=== PATIENT | female | born 1945 | race Caucasian/White ===

== ENCOUNTER → 2022-07-05 08:49 | Outpatient (BNVA) | payer MEDICARE, SELFPAY | PROVIDERS: PCP Internal Medicine; Visit Provider Surgery Vascular Surgery | DX: I65.23 Occlusion and stenosis of bilateral carotid arteries (principal) | CPT/HCPCS: 99212 ==

== ENCOUNTER 2023-07-05 08:14 | Outpatient (REF) | payer MEDICARE, SELFPAY ==
--- NOTE | ~2023-07-05 | US_ITS ---
EXAMINATION: US EXTRACRANIAL CAROTID DUPLEX, BILATERAL CLINICAL INFORMATION: Bilateral carotid stenoses. COMPARISON: 02/12/2020. TECHNIQUE: Real-time ultrasound and Doppler techniques (integrating B-mode 2-D vascular images, Doppler spectral analysis and color-flow Doppler imaging) were utilized to interrogate the extracranial carotid arteries, the vertebral arteries and proximal subclavian arteries bilaterally. The degree of stenosis is determined by criteria similar to NASCET. FINDINGS: RIGHT SIDE: 1. There is mild atherosclerotic plaque seen in the bifurcation/proximal ICA region. 2. The common carotid artery PSV proximally is 113 cm/s and distally 87 cm/s. 3. The proximal internal carotid artery velocities are 94 cm/s systolic and 20 cm/s diastolic. 4. The proximal external carotid artery PSV is 106 cm/s. 5. The vertebral artery shows antegrade flow. 6. The subclavian artery waveforms are normal. LEFT SIDE: 1. There is mild atherosclerotic plaque seen in the bifurcation/proximal ICA region. 2. The common carotid artery PSV proximally is 125 cm/s and distally 84 cm/s. 3. The proximal internal carotid artery velocities are 49 cm/s systolic and 9 cm/s diastolic. 4. The proximal external carotid artery PSV is 85 cm/s. 5. The vertebral artery shows antegrade flow. 6. The subclavian artery waveforms are normal. US/US carotid duplex BI IMPRESSION: 1. RIGHT: Minimal, non-hemodynamically significant stenosis of the proximal right internal carotid artery corresponding to a 0-49% stenosis by velocity criteria. 2. LEFT: Minimal, non-hemodynamically significant stenosis of the proximal left internal carotid artery corresponding to a 0-49% stenosis by velocity criteria. 3. There is no change in the category severity of disease when compared to the previous study dated 02/12/2020.
== END 2023-07-05 08:15 | disposition home or self-care (01) ==
LOC: HO.HMGCX 08:14
PROVIDERS: PCP Internal Medicine; Visit Provider Surgery Vascular Surgery
DX: I65.23 Occlusion and stenosis of bilateral carotid arteries (principal)
CPT/HCPCS: 93880

== ENCOUNTER 2023-07-16 08:56 | Outpatient (AMB) | payer MEDICARE, SELFPAY ==
--- NOTE | 2023-07-16 08:57 | A.OFFVIS_ITS ---
Intake Vital Signs 07/16/23 09:00 Height 4 ft 11 in Weight 107 lb BMI 21.6 Intake Visit Reasons: fu carodid UD Intake Note: pt here for a fallow up Carotid US pt states that she is doing well and has no issues today Accompanied by: Daughter Allergies No Known Allergies Allergy (Verified 07/16/23 09:01) HPI fu carodid UD HPI Details Very pleasant 77-year-old female presents for routine carotid surveillance follow-up. She had originally seen me back in 2019 at [facility] for a right rostral pontine infarct. She had undergone a s ignificant workup inclusive of a CTA. She was lost to follow-up due to COVID. She has returned and has been following up with me here at [facility]. She has had no other interval issues in the meantime. She now presents for routine carotid ultrasound follow-up. [facility] Surgical History H/O: hysterectomy H/O rotator cuff surgery Social History Patient Tobacco Use Status: Never used Tobacco Review of Systems Const All systems reviewed & are unremarkable except as noted in HPI and below Reports no additional complaints ENT Reports Normal hearing present Card Denies chest pain, Denies chest pain at rest, Denies chest pain with activity and Denies pedal edema Resp Denies cough GI Denies abdominal pain Musc Denies abnormal gait, Denies muscle cramps and Denies radiating pain into limb Skin/Breast Denies skin ulcer and Denies wounds Neuro Reports Normal hearing present and Denies abnormal gait Psych Reports no additional complaints Physical Exam Vital Signs: BMI result Body Mass Index 21.6 Const General: cooperative, healthy appearing and comfortable Orientation/consciousness: oriented to person, oriented to place and oriented to time HEENT Head: Yes normal to inspection Neck Neck: Yes normal visual inspection Carotids: no bruits Chest Chest palpation & inspection: normal inspection of the chest Resp Effort & Inspection: normal respiratory effort and able to speak in complete sentences Auscultation: clear to auscultation bilaterally, no crackles, no rales, no rhonchi and no wheezes Cardio Rate: regular rate Rhythm: regular rhythm Heart sounds: S1 normal heart sound present and S2 normal heart sound present Bruits: no carotid bruits Peripheral pulses: Peripheral pulses 2+ throughout GI Inspection: Yes normal to inspection Skin Wounds: no wounds Hair: normal Neuro General: oriented to person, oriented to place and oriented to time Cranial nerves: Yes CN's II-XII intact bilaterally and Yes Normal hearing present Cognition (Neuro): normal cognition Motor exam (neuro): 5/5 motor strength present throughout Extrem Other: venous exam: No significant superficial varicosities or spider telangiectasias, minimal edema General: No clubbing, No cyanosis and No edema Psych Appearance: grossly normal Mental Status: mental status grossly normal Speech and movement: Normal speech and movement present Results Reviewed Results Reviewed: Carotid ultrasound dated 07/05/2023 demonstrates bilateral 0-49. % stenosis. Right side with a peak systolic velocity of 94 and left side peak systolic velocity of only 49. Written report and images were reviewed. Assessment & Plan Assessment & Plan (1) Bilateral carotid artery stenosis: Code(s): I65.23 - Occlusion and stenosis of bilateral carotid arteries Plan: In short patient has asymptomatic carotid disease. We have reviewed signs and symptoms of a stroke. We also discussed risk factor modification inclusive a healthy diet low in cholesterol. The patient will follow up with us with surveillance ultrasound of the carotids 1 year. Should there be any changes or signs or symptoms of a stroke we will be happy to see them back sooner. Thank you for allowing us to participate in this patient's care. If there are any questions or concerns please do not hesitate to contact us. Orders: Orders US carotid duplex BI 364 Days I65.23 - Occlusion and stenosis of bilateral carotid arteries Coding Level of Care Code Est Pt Level 4 (13417) Diagnoses Bilateral carotid artery stenosis I65.23
[2023-07-16 09:00] VITALS: BMI 21.6
== END 2023-07-16 09:23 | disposition home or self-care (01) ==
PROVIDERS: PCP Internal Medicine; Visit Provider Surgery Vascular Surgery
DX: I65.23 Occlusion and stenosis of bilateral carotid arteries (principal)
CPT/HCPCS: 99213

== ENCOUNTER → 2023-07-16 08:56 | Outpatient (BNVA) | payer MEDICARE, SELFPAY | PROVIDERS: PCP Internal Medicine; Visit Provider Surgery Vascular Surgery | DX: I65.23 Occlusion and stenosis of bilateral carotid arteries (principal) | CPT/HCPCS: 99212 ==

== ENCOUNTER 2024-08-06 09:55 | Outpatient (AMB) | payer MEDICARE, SELFPAY ==
--- NOTE | 2024-08-06 09:59 | MHC.OFFVIS ---
Vital Signs 08/06/24 10:10 BP 144/64 H Blood Pressure Location Rt brachial Position Sitting Intake Visit Reasons: 1 yr follow up s/p Carotid US- [facility] Intake Note: Pt c/o of intermittent LLE swelling. Career Placement Specialist Required: Yes Career Placement Specialist Services: Career Placement Specialist Offered & Declined Career Placement Specialist Name: Daughter will interpret Accompanied by: Daughter Allergies No Known Allergies Allergy (Verified 07/16/23 09:01) HPI HPI 1 yr follow up s/p Carotid US- [facility]: Details: Very pleasant 71-year-old female presents for routine surveillance follow-up regarding her carotids. She had elected to get her studies done that [facility]. I have only copies of a written report. Upon discussion with her she has no significant interim changes. She denies any neurological issues. She denies any weakness in arm or leg speech disturbances or visual field deficits. She also notes some swelling of the lower extremities. She does have some right knee and joint issues but now presents for routine follow-up. Of note she is being maintained on aspirin and statin. [facility] Surgical History H/O: hysterectomy H/O rotator cuff surgery Social History (Updated 08/06/24 @ 10:04 by Vielka Velez CMA) Alcohol intake: former Patient Tobacco Use Status: Never used Tobacco Review of Systems Const All systems reviewed & are unremarkable except as noted in HPI and below Denies chills, Denies fatigue, Denies fever(s), Denies weight gain and Denies weight loss ENT Reports Normal hearing present and Denies dizziness Card Denies chest pain, Denies leg edema, Denies lightheadedness, Denies palpitations, Denies dyspnea on exertion, Denies orthopnea and Denies other Resp Denies cough and Denies dyspnea on exertion GI Denies hematochezia and Denies change in stool character Musc Denies abnormal gait, Denies muscle weakness, Denies numbness, Denies radiating pain into limb and Denies tingling Skin/Breast Denies skin ulcer and Denies wounds Neuro Reports Normal hearing present, Denies abnormal gait, Denies dizziness, Denies numbness and Denies tingling Psych Reports no additional complaints Endo Denies fatigue and Denies palpitations Physical Exam Vital Signs: Last Vital Signs BP 144/64 H 08/06/24 10:10 Const General: cooperative, healthy appearing and comfortable Orientation/consciousness: oriented to person, oriented to place and oriented to time HEENT Head: Yes normal to inspection Neck Neck: Yes normal visual inspection Carotids: no bruits Chest Chest palpation & inspection: normal inspection of the chest Resp Effort & Inspection: normal respiratory effort and able to speak in complete sentences Auscultation: clear to auscultation bilaterally, no crackles, no rales, no rhonchi and no wheezes Cardio Other: Palpable dorsalis pulses bilaterally Rate: regular rate Rhythm: regular rhythm Heart sounds: S1 normal heart sound present and S2 normal heart sound present Bruits: no carotid bruits Peripheral pulses: Peripheral pulses 2+ throughout GI Inspection: Yes normal to inspection Skin Wounds: no wounds Hair: normal Neuro General: oriented to person, oriented to place and oriented to time Cranial nerves: Yes CN's II-XII intact bilaterally and Yes Normal hearing present Cognition (Neuro): normal cognition Motor exam (neuro): 5/5 motor strength present throughout Extrem Other: venous exam: +1 edema right greater than left General: No clubbing, No cyanosis and Yes edema Psych Appearance: grossly normal Mental Status: mental status grossly normal Speech and movement: Normal speech and movement present Results Reviewed Results Reviewed: Carotid testing dated 07/05/2023: 1. RIGHT: Minimal, non-hemodynamically significant stenosis of the proximal right internal carotid artery corresponding to a 0-49% stenosis by velocity criteria. 2. LEFT: Minimal, non-hemodynamically significant stenosis of the proximal left internal carotid artery corresponding to a 0-49% stenosis by velocity criteria. 3. There is no change in the category severity of disease when compared to the previous study dated 02/12/2020. Written report from carotid testing dated 1226 2023 from [facility]: Right-sided 0-49% stenosis left side 50-69% stenosis with a peak systolic of 149 and a ratio of 1.5. Although I do not have exact images the left side is towards the lower end of that range as the peak systolic is quite low and the ratio is low as well. Assessment & Plan Assessment & Plan (1) Bilateral carotid artery stenosis: Code(s): I65.23 - Occlusion and stenosis of bilateral carotid arteries Category: Medical Plan: In short patient has asymptomatic carotid disease. At the current time her carotid testing is within normal limits. I did spend a fair amount of time reviewing the testing and reassuring the patient is that the studies are stable. There is no need for intervention at the current time. We have reviewed signs and symptoms of a stroke. We also discussed risk factor modification inclusive a healthy diet low in cholesterol. The patient will follow up with us with surveillance ultrasound of the carotids 1 year. Should there be any changes or signs or symptoms of a stroke we will be happy to see them back sooner. Thank you for allowing us to participate in this patient's care. If there are any questions or concerns please do not hesitate to contact us. (2) Varicose veins of right lower extremity with inflammation: Code(s): I83.11 - Varicose veins of right lower extremity with inflammation Category: Medical Plan: She does have lower extremity swelling. This may be multifactorial in nature. May be related to her knees and overall inflammation. We did have a discussion about venous insufficiency. I have discussed the pathophysiology with the patient and family at bedside. In addition I have provided informational material regarding venous disease to the patient. We have discussed conservative measures including compression, elevation, and exercise. I have also provided a handout regarding appropriate use of compression stockings and where to purchase good compression stockings as well. I have taken the liberty of ordering venous insufficiency testing with the patient. They will follow up with me after testing. The patient had an opportunity to ask questions regarding the treatment plan. All questions were answered. Imaging studies, laboratory studies and physical exam results were discussed and reviewed in detail. No major barriers to understanding were identified. The patient expressed understanding and agreement with the above treatment plan. The patient is aware they should contact our office by phone for worsening of the current condition or the appearance of new symptoms. Thank you for allowing me to participate in the vascular care of this patient. If you have any questions or concerns regarding the treatment for the above condition please do not hesitate to contact me. The office telephone contact is [phone]. This note is constructed using voice recognition software. While every effort has been made to ensure accuracy, light industrial errors may have been included. Thank you for allowing me to participate in the care of your patient. Yours sincerely, Uche eHrnandez MD, FACS, R.P.V.I. Orders: Orders US venous duplex LE BI 1 Week I83.11 - Varicose veins of right lower extremity with inflammation US carotid duplex BI 1 Year I65.23 - Occlusion and stenosis of bilateral carotid arteries Coding Level of Care Code Est Pt Level 4 (05236) Complex EM visit Add On G2211 Diagnoses Bilateral carotid artery stenosis I65.23 Varicose veins of right lower extremity with inflammation I83.11
[2024-08-06 10:10] VITALS: BP 144/64
== END 2024-08-06 10:37 | disposition home or self-care (01) ==
PROVIDERS: PCP Internal Medicine; Visit Provider Surgery Vascular Surgery
DX: I65.23 Occlusion and stenosis of bilateral carotid arteries (principal); I83.11 Varicose veins of right lower extremity with inflammation
CPT/HCPCS: 99214; G2211

== ENCOUNTER → 2024-08-06 09:55 | Outpatient (BNVA) | payer MEDICARE, SELFPAY | PROVIDERS: PCP Internal Medicine; Visit Provider Surgery Vascular Surgery | DX: I65.23 Occlusion and stenosis of bilateral carotid arteries (principal); I83.11 Varicose veins of right lower extremity with inflammation | CPT/HCPCS: 99212 ==

== ENCOUNTER 2024-08-26 12:36 | Outpatient (REF) | payer MEDICARE, SELFPAY ==
--- NOTE | ~2024-08-26 | US_ITS ---
EXAMINATION: US LOWER EXTREMITY VENOUS (REFLUX EXAM), BILATERAL CLINICAL INFORMATION: Varices with inflammation, right lower extremity COMPARISON: None. TECHNIQUE: Color flow triplex imaging and compression Doppler was performed to evaluate both the deep and the superficial systems bilaterally. To evaluate the superficial system, the examination was performed in the upright position. Color-flow Doppler ultrasound and compression ultrasound were utilized. In addition, maneuvers were utilized to demonstrate reflux. FINDINGS: 1. DEEP VENOUS ULTRASOUND OF THE RIGHT LOWER EXTREMITY: Common Femoral Vein: Compressible, normal respiratory variation and augmented flow. Femoral Vein: Compressible, normal color flow and augmentation. Popliteal Vein: Compressible, normal augmentation. Deep Reflux: There is no evidence of reflux in the deep system in either the common femoral vein, superficial femoral or the popliteal vein. There is no evidence of a Casas's cyst. 2. SUPERFICIAL ULTRASOUND WITH DOPPLER OF RIGHT LOWER EXTREMITY: GREAT SAPHENOUS VEIN: Saphenofemoral Junction: 0.4 cm; Reflux: 0 ms Proximal Thigh: 0.2 cm; Reflux: 0 ms Mid Thigh: 0.2 cm; Reflux: 0 ms Distal Thigh: 0.2 cm; Reflux: 0 ms At Knee: 0.2 cm; Reflux: 0 ms Proximal Calf: 0.4 cm; Reflux: 0 ms Mid Calf: 0.2 cm; Reflux: 0 ms Distal Calf: 0.2 cm; Reflux: 0 ms DUPLICATED MEDIAL GREAT SAPHENOUS VEIN: Diameter: None imaged Reflux: NA DUPLICATED LATERAL GREAT SAPHENOUS VEIN: Diameter: 0.2 Reflux: NA SMALL SAPHENOUS VEIN: Saphenopopliteal Junction: 0.1 cm; Reflux: 0 ms Proximal: 0.1 cm; Reflux: 0 ms Distal: 0.2 cm; Reflux: 0 ms VEIN OF GIACOMINI: Size: 0.1 Reflux: NA PERFORATORS: Location: None imaged Size: NA Reflux: NA VARICOSITIES: Location: None imaged. Size: NA Reflux: NA 3. DEEP VENOUS ULTRASOUND OF THE LEFT LOWER EXTREMITY: Common Femoral Vein: Compressible, normal respiratory variation and augmented flow. Femoral Vein: Compressible, normal color flow and augmentation. Popliteal Vein: Compressible, normal augmentation. Deep Reflux: There is no evidence of reflux in the deep system in either the common femoral vein, superficial femoral or the popliteal vein. There is no evidence of a Casas's cyst. 4. SUPERFICIAL ULTRASOUND WITH DOPPLER OF LEFT LOWER EXTREMITY: GREAT SAPHENOUS VEIN: Saphenofemoral Junction: 0.4 cm; Reflux: 0 ms Proximal Thigh: 0.2 cm; Reflux: 0 ms Mid Thigh: 0.2 cm; Reflux: 0 ms Distal Thigh: 0.2 cm; Reflux: 0 ms At Knee: 0.2 cm; Reflux: 0 ms Proximal Calf: 0.3 cm; Reflux: 0 ms Mid Calf: 0.1 cm; Reflux: 0 ms Distal Calf: 0.2 cm; Reflux: 0 ms DUPLICATED MEDIAL GREAT SAPHENOUS VEIN: Diameter: None imaged Reflux: NA DUPLICATED LATERAL GREAT SAPHENOUS VEIN: Diameter: None imaged. Reflux: NA SMALL SAPHENOUS VEIN: Saphenopopliteal Junction: 0.2 cm; Reflux: 0 ms Proximal: 0.2 cm; Reflux: 0 ms Distal: 0.1 cm; Reflux: 0 ms VEIN OF GIACOMINI: Size: 0.2 Reflux: NA PERFORATORS: Location: None imaged Size: NA Reflux: NA VARICOSITIES: Location: None Imaged Size: NA Reflux: NA US/US venous insuf bilat IMPRESSION: Right: No venous insufficiency. Left: No venous insufficiency. Electronically signed by: Jarett Jordan MD 08/31/2024 08:15 AM [facility]
== END 2024-08-26 12:37 | disposition home or self-care (01) ==
LOC: HO.US 12:36
PROVIDERS: PCP Internal Medicine; Visit Provider Surgery Vascular Surgery
DX: I83.11 Varicose veins of right lower extremity with inflammation (principal)
CPT/HCPCS: 93970

== ENCOUNTER → 2024-08-26 12:39 | Outpatient (BNV) | payer MEDICARE, SELFPAY | PROVIDERS: PCP Internal Medicine; Visit Provider Radiology Diagnostic Radiology | DX: I83.11 Varicose veins of right lower extremity with inflammation (principal) | CPT/HCPCS: 93970 ==

== ENCOUNTER 2024-09-03 11:26 | Outpatient (AMB) | payer MEDICARE, SELFPAY ==
--- NOTE | 2024-09-03 11:31 | A.OFFVIS_ITS ---
Intake Visit Reasons: follow up s/p US 08/26/24 Intake Note: Patient presents for US . No complaints. Accompanied by: Daughter Allergies No Known Allergies Allergy (Verified 09/03/24 11:32) HPI HPI follow up s/p US 08/26/24: Details: Ninfa is presenting today with her daughter for a follow up to venous insufficiency ultrasound, performed on 08/26/2024. She recently was here for a follow up to carotid ultrasound on 08/06/20[address] and was discussing with Dr[address] Hernandez about bilateral lower extremity swelling and pain, worse on the right. He then ordered a venous insufficiency ultrasound. She continues with swelling and pain, mostly located in the right knee area. She has been seen and has had an cortisone injection in the past, which helped for about a week or so. She is also set to have a stress test next week to rule out causes of the swelling. She denies any injuries or wounds to the site. [facility] Surgical History H/O: hysterectomy H/O rotator cuff surgery Social History Alcohol intake: former Patient Tobacco Use Status: Never used Tobacco Review of Systems Const Reports as per HPI and Denies weakness ENT Reports Normal hearing present and Denies dizziness Card Reports as per HPI, Denies chest pain, Denies chest pain at rest, Denies chest pain with activity, Denies dyspnea and Denies dyspnea on exertion Resp Reports as per HPI, Denies cough, Denies dyspnea and Denies dyspnea on exertion GI Reports as per HPI, Denies abdominal pain, Denies nausea and Denies vomiting Musc Denies numbness Skin/Breast Reports as per HPI, Denies erythema and Denies wounds Neuro Reports Normal hearing present, Denies dizziness, Denies numbness, Denies Sensory deficit (Neuro) and Denies weakness Psych Reports no additional complaints Endo Reports no additional complaints Physical Exam Const General: healthy appearing and no acute distress Orientation/consciousness: patient oriented x3 HEENT Head: Yes normal to inspection Ears: hearing grossly normal bilaterally Mouth: Normal oral and palatal mucosa present Resp Effort & Inspection: normal respiratory effort and able to speak in complete sentences Auscultation: clear to auscultation bilaterally Cardio Jugular venous distension: no JVD Rate: regular rate Rhythm: regular rhythm Heart sounds: S1 normal heart sound present and S2 normal heart sound present Bruits: no abdominal aortic bruits, no carotid bruits, no femoral bruits and no renal bruits Peripheral pulses: Peripheral pulses 2+ throughout GI Inspection: Yes normal to inspection Palpation (GI): No Abdominal aortic bruit present Skin General skin exam: no rashes or lesions noted Wounds: no wounds Hair: normal Neuro General: patient oriented x3 Cranial nerves: Yes Normal hearing present Cognition (Neuro): normal cognition Gait exam (Neuro): Normal gait present Motor exam (neuro): 5/5 motor strength present throughout Sensory Exam: No Sensory deficit (Neuro) Extrem Other: Right lower extremity: Swelling noted on the medial aspect of the knee. Trace peripheral edema noted in the ankle area. Palpable DP pulses. General: Yes normal to inspection, Yes full ROM, Yes capillary refill normal and Yes normal gait Results Reviewed Results Reviewed: Brief summary of venous insufficiency testing is as follows: right great saphenous vein: negative right small saphenous vein: negative right accessory vein: none present left great saphenous vein: negative left small saphenous vein: negative left accessory vein: none present Please note there is no evidence of any venous aneurysms or significant tortuosity Assessment & Plan Assessment & Plan (1) Varicose veins of right lower extremity with inflammation: Code(s): I83.11 - Varicose veins of right lower extremity with inflammation Category: Medical Plan: Ninfa is presenting today as a follow up to venous insufficiency ultrasound, performed on 08/26/2024. The ultrasound was negative for any venous insufficiency. She does continue to endorse right more than left lower extremity swelling and pain, particularly around the right knee. She has been seen and had a cortisone injection in the right knee previously, which she states helped for only about a week. She is going to have a cardiac stress test next week to rule out any cardiac causes of swelling. We discussed following back up with her PCP for possible referral to ortho due to ongoing right knee pain and swelling. We discussed the importance of continuing with compression stockings, elevation, and physical activity. The daughter states the patient is very active but the knee pain has been difficult for her to stay active. We discussed if they had any other vascular concerns or any changes, they can reach out to us any point. We did print out a copy of the report of the ultrasound for the patient to bring to her PCP. She has a year follow up for her carotid stenosis scheduled. Thank you for allowing us to participate in the patient's care. If there are any questions or concerns, please do not hesitate to reach out to us. Coding Level of Care Code Est Pt Level 4 (01708) Diagnoses Varicose veins of right lower extremity with inflammation I83.11 Comment Review of venous insufficiency ultrasound
--- OUTSIDE RECORDS SUMMARY | 2024-09-03 15:24 | XMS_ITS | Clinical Summary ---
Author Organization [facility] Address [address] [place] [phone] Phone Care Team Providers Care Hog Worker Name Role Phone Addie Deleon MD Primary Care Provider [phone] Allergies No known active allergies Medications Medication Sig Dispensed Refills Start Date End Date Status aspirin 81 mg EC tablet Take 1 Tablet by mouth daily. 04/07/2024 Active ciclopirox (LOPROX) 0.77 % gel Apply topically daily 05/14/2023 Active fluticasone propionate (FLONASE) 50 mcg/actuation nasal spray Two sprays per nostril once daily 11/22/2022 Active folic acid/multivit-min/l utein (CENTRUM SILVER ORAL) Take by mouth. 10/01/2018 Active GARLIC ORAL Take by mouth. Active CALCIUM CITRATE ORAL Take by mouth. Active omeprazole (PriLOSEC) [address] capsule Take 1 capsule (10 mg total) by mouth 1 (one) time each day before breakfast. 90 capsule 07/13/2024 Active atorvastatin (LIPITOR) 10 mg tablet Take 1 tablet (10 mg total) by mouth at bedtime. 90 tablet 07/13/2024 Active Active Problems Problem Noted Date Diagnosed Date Onychomycosis 04/26/2022 Hyperlipidemia 10/12/2020 Carotid stenosis 06/29/2019 Overview (05/18/2024): 60%06/23 Hemiparesis affecting right side as late effect of stroke 06/19/2019 Overview (05/18/2024): Right sided, left sided weakness 06/23 Allergic rhinitis 06/08/2019 Insomnia 11/17/2018 Osteoarthritis 10/01/2018 Tubular adenoma 04/07/2015 Overview (05/18/2024): Dr Hernandez general medicine note 12/22/2013 GERD (gastroesophageal reflux disease) 5 Osteopenia 12/13/2014 Overview (05/18/2024): 2018 T score spine -1.7 hip -2.1 FRAX score 13% 10 year fracture risk 12/23 T score spine -2.3 hip -2.0 FRAX score 11% 10 year fracture risk 06/27 T score spine -2.3 hip -2.4 FRAX score 16% 10 year fracture risk Encounters Date Type Department Care Team Description 08/07/2024 8:30 AM EST Office Visit Orthopedics - [address] [phone] Adam Henson PA Primary osteoarthritis of right knee (Primary Dx) 08/04/2024 2:30 PM EST Office Visit Adult Medicine [address] [phone] Maricruz Haskins PA Chronic pain of both knees (Primary Dx); Chest pain, unspecified type; Bilateral carotid artery stenosis 07/31/2024 9:07 AM EST - 07/31/2024 11:59 PM EST Hospital Encounter Radiology Department - [address] [phone] Occlusion and stenosis of bilateral carotid arteries Discharge Disposition: Home or Self Care 06/09/2024 Nurse Triage Adult Medicine [address] [phone] Addie Deleon MD Covid-19 (Positive by home test on 06/09/24); Generalized Body Aches; Fever (100.5-100.7 as of today); Altered Taste; Sore Throat; Dry Mouth; Headache; heaviness (In legs and arms) from Last 3 Months Immunizations Name Administration Dates Next Due Influenza trivalent, 0.5mL ( Fluad) 65yo and older 05/02/2023,04/26/2022,04/26/2021,05/11,05/15/2019,05/13/2018,06/01/2017 ,05/01/2016,05/20/2015,05/05/2014 Moderna (age 6mo & older) Bi valent, COVID-19, 0.5 mL or 0.25 mL dosage 05/18/2022 Pneumococcal conjugate 13 va lent (Prevnar 13, PCV13) 2mo and older 05/01/2016 Pneumococcal polysaccharide 23 valent (Pneumovax 23) 2yo and older 06/01/2017,04/05/2011 Td Tetanus diptheria (Tdvax) 7yo and older 06/08/2019,11/10/2007 Zoster recombinant (Shingrix ) 19yo and older 05/20/2021,03/15/2021 Surgical History Surgery Date Site/Laterality Comments HYSTERECTOMY PROCEDURE: HISTORICAL HYSTERECTOMY COLONOSCOPY 10/05/2008 PROCEDURE: HISTORICAL COLONOSCOPY ROTATOR CUFF REPAIR 2006 Right PROCEDURE: HISTORICAL ROTATOR CUFF REPAIR OTHER SURGICAL HISTORY 05/2021 PROCEDURE: MAMMOGRAM COLONOSCOPY 03/2021 PROCEDURE: HISTORICAL COLONOSCOPY Medical History Medical History Date Comments Osteopenia 12/13/2014 DX:Osteopenia Osteoarthritis 10/01/2018 DX:Osteoarthriti s GERD (gastroesophageal reflux disease) 12/13/2014 DX:GERD (gastroesophageal reflux disease) Insomnia 11/17/2018 DX:Insomnia Tubular adenoma 04/07/2015 DX:Tubular adeno ma; COMMENT: Dr Hernandez general medicine note 12/22/2013 Ischemic stroke (CMS/HCC) 06/19/2019 DX:Isc hemic stroke (HCC); COMMENT: Right sided, left sided weakness 06/23 Carotid stenosis 06/29/2019 DX:Carotid sten osis; COMMENT: 60%06/23 Hyperlipidemia 10/12/2020 DX:Hyperlipidemi a Onychomycosis 04/26/2022 DX:Onychomycosis Family History Medical History Relation Name Comments Other: cancer prostate Father strok e Stroke Maternal Grandmother Stroke Mother Other: cancer of cervix Sister 1 Other: alcoholism Sister 2 Breast cancer Neg Hx Relation Name Status Comments Father Maternal Grandmother Mother Sister 1 Sister 2 Social History Tobacco Use Types Packs/Day Years Used Date Smoking Tobacco: Never Smokeless Tobacco: Never Tobacco Cessation:Counseling Given: Not Answered Alcohol Use Standard Drinks/Week Comments Yes 0 (1 standard drink = 0.6 oz pur e alcohol) Sex and Gender Information Value Date Recorded Sex Assigned at Not on file Gender Identity Not on file Sexual Orientation Not on file Job Start Date Occupation Industry Not on file Not on file Not on file Obstetrics History Last Filed Vital Signs Vital Sign Reading Time Taken Comments Blood Pressure 138/68 08/04/2024 2:20 PM EST Pulse 74 08/04/2024 2:20 PM EST Temperature 36.8 ??C (98.3 ??F) 08/04/2024 2:20 PM ES T Respiratory Rate 12 08/04/2024 2:20 PM EST Oxygen Saturation 97% 08/04/2024 2:20 PM EST Inhaled Oxygen Concentration - - Weight 49.4 kg (109 lb) 08/07/2024 8:28 AM EST Height 149.9 cm (4' 11.02 ) 08/07/2024 8:[address] Body Mass Index 22 08/07/2024 8:28 AM EST Plan of Treatment Upcoming Encounters Date Type Department Care Team (Late st Contact Info) Description 09/10/2024 9:15 AM EST Ancillary Procedure [facility] [address] [phone] 09/23/2024 4:00 PM EST Office Visit Orthopedics [address] [phone] Adam Henson PA [address] [place] [address] 11/09/2024 8:30 AM EDT Office Visit Adult Medicine [place] [address] [phone] Addie Deleon MD [address] [place] [address] 12/02/2024 4:00 PM EDT Appointment Radiology Department - [place] [address] [place] [address] Health Maintenance Due Date Last Done Comments RSV Immunization Patients 60+ Years Old (1 - 1-dose 75+ series) 2021 Depression Screening 07/14/2022 Falls Risk Assessment 07/14/2022 Medicare Annual Wellness Visit 07/14/2022 Social Influencers of Health Screening 07/14/2022 COVID-19 Vaccine ( season) 2024 05/18/2022, 06/08/2021, 10/26/2020, Additional history exists Colorectal Cancer Screening: Colonoscopy 03/06/2026 03/06/2021 Cholesterol Screening (Lipid Panel) 05/11/2029 05/11/2024, 05/11/2024 DTaP,Tdap,and Td Vaccines (3 - Td or Tdap) 06/08/2029 06/08/2019, 11/10/2007 Osteoporosis Screening (Bone Density Screening) 07/04/2033 07/04/2023, 12/28/2020, 11/06/2018 Hepatitis C Screening Completed 12/30/2014 Pneumococcal Vaccine: 65+ Years Completed 06/01/2017, 05/01/2016, 04/05/2011 Zoster Vaccines Completed 05/20/2021, 03/15/2021 Influenza Vaccine Completed 06/01/2024, , 04/26/2022, Additional history exists HIB Vaccines Aged Out No longer eligi ble based on patient's age to complete this topic HPV Vaccines Aged Out No longer eligi ble based on patient's age to complete this topic Hepatitis A Vaccines Aged Out No long er eligible based on patient's age to complete this topic Hepatitis B Vaccines Aged Out No long er eligible based on patient's age to complete this topic IPV Vaccines Aged Out No longer eligi ble based on patient's age to complete this topic MMR Vaccines Aged Out No longer eligi ble based on patient's age to complete this topic Meningococcal ACWY Vaccine Aged Out N o longer eligible based on patient's age to complete this topic RSV Immunization Patients Under 20 months Aged Out No longer eligible based on patient's age to complete this topic Varicella Vaccines Aged Out No longer eligible based on patient's age to complete this topic Procedures Procedure Name Priority Date/Time Associated Diagnosis Comments VAS US DUPLEX CAROTID BILATERAL Routine 07/31/2024 10:02 AM EST Occlusion and stenosis of bilateral carotid arteries LIPID PANEL Routine 05/11/2024 DXA BONE DENSITY STUDY 1+ SITS AXIAL SKEL Routine 07/04/2023 3:17 PM EST Other specified disorders of bone density and structure, unspecified site HM COLONOSCOPY Routine 03/06/2021 HEPATITIS C SCREENING Routine 12/30/2014 from Last 3 Months or Most Recently Relevant to Health Maintenance Results * Vascular US duplex carotid bilateral (07/31/2024 10:02 AM EST) Anatomical Region Laterality Modality Vascular, Abdomen Ultrasound 07/31/2024 10:0 5 AM EST Impressions 07/31/2024 10:11 AM EST Impression: Technically difficult examination. ??Findings consistent with a 0- 49% right internal carotid artery stenosis and a 50-69% left internal carotid artery stenosis. -------- FINAL REPORT -------- Dictated By: Brandon Lopez Dictated Date: 07/31/2024 10:05 ET Assigned Physician: Brandon Lopez Reviewed and Electronically Signed By: Brandon Lopez Signed Date: 07/31/2024 10:11 ET Workstation ID: [id number] Transcribed By: Self Edit Transcribed Date: 07/31/2024 10:05 ET Narrative 07/31/2024 10:11 AM EST History: Carotid artery stenosis. Carotid Doppler examination: Real-time, duplex and color Doppler examination of the carotid and vertebral arteries was performed bilaterally. ??Evaluation was difficult due to bilateral high carotid arterial bifurcations. ??There are small echogenic plaques at the internal carotid artery and ECA origins as well as in the distal CCAs bilaterally. Waveforms, velocities and velocity ratios are normal on the right. ??On the right the peak systolic velocity is 123 cm/s and the peak internal carotid artery to CCA ratio 0.8. ??On the left the peak internal carotid artery velocity is 149 cm/s and the peak internal carotid artery to CCA ratio is 1.5. ??The peak systolic velocity on the left is compatible with a 50-69% stenosis, with the caveat that the evaluation was technically difficult. ??Vertebral flow is antegrade bilaterally, with normal waveforms. Procedure Note Brandon Lopez MD - 07/31/2024 History: Carotid artery stenosis. Carotid Doppler examination: Real-time, duplex and color Dopplerexamination of the carotid and vertebral arteries was performedbilaterally. Evaluation was difficult due to bilateral high carotidarterial bifurcations. There are small echogenic plaques at the internalcarotid artery and ECA origins as well as in the distal CCAs bilaterally.Waveforms, velocities and velocity ratios are normal on the right. On theright the peak systolic velocity is 123 cm/s and the peak internal carotidartery to CCA ratio 0.8. On the left the peak internal carotid arteryvelocity is 149 cm/s and the peak internal carotid artery to CCA ratio is1.5. The peak systolic velocity on the left is compatible with a 50-69%stenosis, with the caveat that the evaluation was technically difficult.Vertebral flow is antegrade bilaterally, with normal waveforms. IMPRESSION: Impression: Technically difficult examination. Findings consistent with a0-49% right internal carotid artery stenosis and a 50-69% left internalcarotid artery stenosis. -------- FINAL REPORT -------- Dictated By: Brandon Lopez Dictated Date: 07/31/2024 10:05 ET Assigned Physician: Brandon Lopez Reviewed and Electronically Signed By: Brandon Lopez Signed Date: 07/31/2024 10:11 ET Workstation ID: [id number] Transcribed By: Self Edit Transcribed Date: 07/31/2024 10:05 ET Maricruz DURAN CV VASCULAR PROCEDUR ES * Lipid panel (05/11/2024) LDL/HDL Ratio 2 0 - 4 Triglycerides 72 0 - 150 mg/dL Cholesterol 121 0 - 200 mg/dL HDL 56 40 mg/dL LDL Cholesterol 51 0 - 100 mg/dL Blood Venous blood specimen / Unknown Historical Provider LAB BLOOD ORDERAB LES * DXA BONE DENSITY STUDY 1+ SITS AXIAL SKEL (07/04/2023 3:17 PM EST) Anatomical Region Laterality Modality Bone Densitometr y 05/02/2023 9:02 AM EDT Narrative 07/04/2023 6:24 PM EST BONE DENSITY ? Lumbar Spine T-score is -2.3 ?? (SD relative to 20-29 y/o adult) Z-score is +0.2 ??(SD relative to age matched peers) This is consistent with osteopenia by criteria defined by the WHO. Left Hip T-score is -2.4 Z-score is -0.2 This is consistent with osteopenia by criteria defined by the WHO. Comparison exam(s): significant increase in bone density of ??hip when compared to most recent bone density examination ?? Confidence level is +/-95%. Impression: Based on the World Health Organization criteria, Ninfa Roblero should be classified as having osteopenia. This patient has a 16% risk of major osteoporotic fracture and a 5.1% risk of hip fracture over the next 10 years. (World Health Organization Fracture Risk Assessment) [facility] Department of Internal Medicine recommends using National Osteoporosis Foundation (NOF) guidelines in treatment decisions related to osteoporosis. NOF guidelines suggest considering treatment for postmenopausal women and men aged 50 or older presenting with the following: History of hip or vertebral fracture. T-score less than or equal to -2.5 (DXA) at the femoral neck, total hip, or spine, after appropriate evaluation to exclude secondary causes. Low bone mass (T-score between -1.0 and -2.5 at the femoral neck or spine) AND a 10-year probability of a hip fracture greater than or equal to 3% OR a 10-year probability of a major osteoporosis-related fracture greater than or equal to 20% based on the [place]-adapted WHO algorithm Please note that all treatment decisions require clinical judgment and consideration of individual patient factors, including patient preferences, co-morbidities, previous drug use, risk factors not captured in the FRAX model (e.g., frailty, falls, vitamin D deficiency, increased bone turnover, interval significant decline in bone density) and possible under- or over-estimation of fracture risk by FRAX. Procedure Note Radha Garcia MD - 09/10/2023 BONE DENSITY Lumbar Spine T-score is -2.3 (SD relative to 20-29 y/o adult) Z-score is +0.2 (SD relative to age matched peers) This is consistent with osteopenia by criteria defined by the WHO. Left Hip T-score is -2.4 Z-score is -0.2 This is consistent with osteopenia by criteria defined by the WHO. Comparison exam(s): significant increase in bone density of hip whencompared to most recent bone density examination Confidence level is +/-95%. Impression: Based on the World Health Organization criteria, Ninfa Roblero should beclassified as having osteopenia. This patient has a 16% risk of majorosteoporotic fracture and a 5.1% risk of hip fracture over the next 10years. (World Health Organization Fracture Risk Assessment) [facility] Department of Internal Medicine recommendsusing National Osteoporosis Foundation (NOF) guidelines in treatmentdecisions related to osteoporosis. NOF guidelines suggest consideringtreatment for postmenopausal women and men aged 50 or older presentingwith the following: History of hip or vertebral fracture. T-score less than or equal to -2.5 (DXA) at the femoral neck, total hip,or spine, after appropriate evaluation to exclude secondary causes. Low bone mass (T-score between -1.0 and -2.5 at the femoral neck or spine)AND a 10-year probability of a hip fracture greater than or equal to 3% ORa 10-year probability of a major osteoporosis-related fracture greaterthan or equal to 20% based on the [place]-adapted WHO algorithm Please note that all treatment decisions require clinical judgment andconsideration of individual patient factors, including patientpreferences, co-morbidities, previous drug use, risk factors not capturedin the FRAX model (e.g., frailty, falls, vitamin D deficiency, increasedbone turnover, interval significant decline in bone density) and possibleunder- or over-estimation of fracture risk by FRAX. Maricruz DURAN IMG DXA PROCEDURES * Colonoscopy (03/06/2021) Pathologist [facility] Colonoscopy normal, abstracted Anatomical Region Laterality Modality Other Historical Provider MD IRWIN Combs * Hepatitis C Screening (12/30/2014) Pathologist [facility] Hepatitis C Screening abstracted Historical Provider MD IRWIN Combs from Last 3 Months or Most Recently Relevant to Health Maintenance Advance Directives Documents on File Type Date Recorded Patient Registered Dietetic Technician Expl anation Health Care Decision (hx) 06/18/2019 AD SHAVER DIRECTIVE Health Care Decision (hx) 06/18/2019 AD SHAVER DIRECTIVE Health Care Decision (hx) 06/18/2019 AD SHAVER DIRECTIVE Health Care Decision (hx) 06/18/2019 AD SHAVER DIRECTIVE Care Teams Hog Worker Relationship Specialty Start Date End Date Addie Deleon MD [address] [place] [address] PCP - General Internal Medicine 04/22/15
--- OUTSIDE RECORDS SUMMARY | 2024-09-03 15:24 | XMS_ITS | Encounter Summary ---
Author Organization [facility] Address [address] [place] [address] Care Team Providers Care Matrix Worker Name Role Phone Addie Deleon MD Primary Care Provider [phone] Reason for Referral * Consultation (Routine) - Authorized Specialty Diagnoses / Procedures Referred By Contac t Referred To Contact Cardiology Diagnoses Chest pain, unspecified type Maricruz Haskins PA [address] [place] [address] [facility] [address] [place] [address] [address] [place] [address] Referral ID Status Reason Start Date Expiration Date Visits Requested Visits Authorized [id number] Authorized Specialty Services Required 08/14/2024 08/14/2025 12 12 * Cardiac Stress Testing (Routine) - Authorized Specialty Diagnoses / Procedures Referred By Contac t Referred To Contact Cardiology Diagnoses Chest pain, unspecified type Procedures Exercise stress test Maricruz Haskins PA [address] [place] [address] [facility] Referral ID Status Reason Start Date Expiration Date V isits Requested Visits Authorized [id number] Authorized 08/04/2024 08/04/2025 1 1 Reason for Visit * Reason Comments Joint Swelling Right knee x2 weeks and left knee starting to get swollen as well. Encounter Details Date Type Department Care Team (Late st Contact Info) Description 08/04/2024 2:30 PM EST Office Visit Adult Medicine [facility] [address] [place], [place] [phone] Maricruz Haskins PA [address] [place] [address] Chronic pain of both knees (Primary Dx); Chest pain, unspecified type; Bilateral carotid artery stenosis Social History Tobacco Use Types Packs/Day Years [...] file Not on file Not on file documented as of this encounter Last Filed Vital Signs Vital Sign Reading Time Taken Comments Blood Pressure 138/68 08/04/2024 2:20 PM EST Pulse 74 08/04/2024 2:20 PM EST Temperature 36.8 ??C (98.3 ??F) 08/04/2024 2:20 PM ES T Respiratory Rate 12 08/04/2024 2:20 PM EST Oxygen Saturation 97% 08/04/2024 2:20 PM EST Inhaled Oxygen Concentration - - Weight 49.4 kg (109 lb) 08/04/2024 2:20 PM EST Height 149.9 cm (4' 11 ) 08/04/2024 2:20 PM EST Body Mass Index 22.02 08/04/2024 2:20 PM EST documented in this encounter Patient Instructions * Attachments The following attachments cannot be sent through Care Everywhere. * Chest Pain (Latvian) documented in this encounter Progress Notes * RENEE Ramirez - 08/04/2024 2:30 PM EST CHIEF COMPLAINT: Joint Swelling (Right knee x2 weeks and left knee starting to get swollen as well.) IDENTIFIER: Ninfa Roblero is a 79 y.o. old female. HPI: 79-year-old female presenting to office (with her son, providing as needed Burmese interpretation) for evaluation. Her son requests the patient's daughter Mervat also be present via speaker phone. Patient reports experiencing pain and swelling in both knees (R>L) for months; she was evaluatedby orthopedics on 05/27/24 and received cortisone injection with some relief and has pending appointment on 08/07/24. She reports taking 2 tablets of Tylenol (?mg) up to BID with some minor relief. Her daughter states there has been swelling extending into feet and ankles (which we discussed is notpresent on exam today); they deny monitoring daily weight at home and there is no history of CHF. Her daughter is asking if leg swelling may be related to mild progression of known carotid stenosis; they report pending appointment with Dr. Hernandez (vascular surgery). At the end of the visit, patient reports experiencing episodes of centralized chest pain for at least a year and states she did not report this at previous office visits. Reports developing chest discomfort with physical activity, such as carrying firewood, or she is emotional, feeling anxious. Initially, she reports episodes occurred once every few weeks, then a few times per week, and now, she states symptoms can occur almost daily. Denies chest pain at time of exam. ROS: GENERAL: No fever, shaking chills RESPIRATORY: No shortness of breath CARDIOVASCULAR: No active chest pain or palpitations; see HPI MUSCULOSKELETAL: As above NEURO: No syncope, seizures PAST MEDICAL HISTORY: Patient Active Problem List Diagnosis Date Noted Onychomycosis 04/26/2022 Hyperlipidemia 10/12/2020 Carotid stenosis 06/29/2019 Hemiparesis affecting right side as late effect of stroke ([facility]) 06/19/2019 Allergic rhinitis 06/08/2019 Insomnia 11/17/2018 Osteoarthritis 10/01/2018 Tubular adenoma 04/07/2015 GERD (gastroesophageal reflux disease) 12/13/2014 Osteopenia 12/13/2014 Past Surgical History: Procedure Laterality Date COLONOSCOPY 10/05/2008 PROCEDURE: HISTORICAL COLONOSCOPY COLONOSCOPY 03/2021 PROCEDURE: HISTORICAL COLONOSCOPY HYSTERECTOMY PROCEDURE: HISTORICAL HYSTERECTOMY OTHER SURGICAL HISTORY 05/2021 PROCEDURE: MAMMOGRAM ROTATOR CUFF REPAIR Right 2006 PROCEDURE: HISTORICAL ROTATOR CUFF REPAIR SOCIAL HISTORY: Social History Tobacco Use Smoking status: Never Smokeless tobacco: Never Substance Use Topics Alcohol use: Yes FAMILY HISTORY: Family History Problem Relation Name Age of Onset Stroke Maternal Grandmother Stroke Mother 94.00 Other (Other: cancer prostate) Father stroke Other (Other: cancer of cervix) Sister Other (Other: alcoholism) Sister Breast cancer Neg Hx Family Status Relation Name Status MGM (Not Specified) Mother Father Sister Sister Neg Hx (Not Specified) No partnership data on file MEDICATIONS DISCONTINUED/REORDERED: There are no discontinued medications. ACTIVE MEDICATIONS: Outpatient Medications Marked as Taking for the 08/04/24 encounter (Office Visit) with RENEE Ramirez Medication Sig Dispense Refill aspirin 81 mg EC tablet Take 1 Tablet by mouth daily. atorvastatin (LIPITOR) 10 mg tablet Take 1 tablet (10 mg total) by mouth at bedtime. 90 tablet 0 CALCIUM CITRATE ORAL Take by mouth. folic acid/multivit-min/lutein (CENTRUM SILVER ORAL) Take by mouth. GARLIC ORAL Take by mouth. omeprazole (PriLOSEC) [address] capsule Take 1 capsule (10 mg total) by mouth 1 (one) time each day before breakfast. 90 capsule 0 ALLERGIES: No Known Allergies PHYSICAL EXAM: Visit Vitals BP 138/68 (BP Location: Left arm, Patient Position: Sitting) Pulse 74 Temp 36.8 ??C (98.3 ??F) (Temporal) Resp 12 Ht 1.499 m (59 ) Wt 497 kg (1096 lb) SpO2 97% BMI 221.37 kg/m?? Smoking Status Never BSA 3.8 m?? Wt Readings from Last 5 Encounters: 08/04/24 49.4 kg (109 lb) 05/27/24 48.5 kg (107 lb) 05/11/24 48.5 kg (107 lb) 12/04/23 48.1 kg (106 lb) 10/31/23 48.2 kg (106 lb 3.2 oz) BMI is 18.5 to 24.9 (within the normal range) and will be followed APPEARANCE: Alert and in no acute distress HEART: RRR with normal S1 and S2, no murmurs, no gallops LUNG: Bilateral lung toussaint clear to auscultation throughout EXTREMITIES: Moving bilateral lower extremities independently; no obvious lower extremity deformity; bilateral lower extremities warm and well perfused without edema EKG: Sinus rhythm, rate 67 bpm, no evidence of arrhythmia or ischemia. Appears similar to tracing dated 11/22/22. LABS: Orders Placed This Encounter Procedures Ambulatory referral to Cardiology Exercise stress test IMAGING: Ordered cardiovascular stress test IMPRESSION: 1. Chronic pain of both knees 2. Chest pain, unspecified type PLAN: Chronic knee pain: We discussed patient may increase Tylenol to 1000 mg every 8 hours, if needed and may also use diclofenac gel every 6 hours with warm compresses. Keep appointment with orthopedics on 08/07/24, as scheduled. Chest pain: Asymptomatic on exam without acute evidence of ischemia on EKG. She will continue with daily baby aspirin and atorvastatin; we did discuss for any return of chest pain that she should immediately present to emergency room and patient/family verbalized understanding. Carotid stenosis: Patient's daughter is inquiring on carotid ultrasound from 2022 which we discussed is not available in current or [facility]; she states this image was ordered by Dr. Hernandez and other than 07/31/24, we discussed most recent study is dated 05/03/22. Going forward, recommended to have ultrasounds performed with Dr. Hernandez's office. Medication and lab orders: Orders Placed This Encounter Procedures Ambulatory referral to Cardiology Exercise stress test Other orders: STRESS TEST ONLY EXERCISE AMB REFERRAL TO CARDIOLOGY RENEE Ramirez on 08/04/2024 at 5:50 PM EST documented in this encounter Plan of Treatment Upcoming Encounters Date Type Department Care Team (Late st Contact Info) Description 09/10/2024 9:15 AM EST Ancillary Procedure [facility] - [address] [place] [address] 09/23/2024 4:00 PM EST Office Visit Orthopedics [address] [phone] Adam Henson PA [address] [place] [address] 11/09/2024 8:30 AM EDT Office Visit Adult Medicine [address] [phone] Addie Deleon MD [address] [place] [address] 12/02/2024 4:00 PM EDT Appointment Radiology Department [address] [phone] Scheduled Orders Name Type Priority Associated Diagnoses Orde r Schedule Exercise stress test Cardiac Nuclear Medicine Routine Chest pain, unspecified type 1 Occurrences starting 08/04/2024 until 08/04/2025 Scheduled Referrals Name Type Priority Associated Diagnoses Order Schedule Ambulatory referral to Cardiology Outpatient Referral Routine Chest pain, unspecified type 1 Occurrences starting 08/04/2024 until 08/04/2025 documented as of this encounter Visit Diagnoses Diagnosis Chronic pain of both knees- Primary Chest pain, unspecified type Bilateral carotid artery stenosis Occlusion and stenosis of carotid artery without mention of cerebral infarction documented in this encounter Care Teams Matrix Worker Relationship Specialty Start Date End Date Addie Deleon MD [address] [place] [id number] PCP - General Internal Medicine 04/22/15 documented as of this encounter
--- OUTSIDE RECORDS SUMMARY | 2024-09-03 15:24 | XMS_ITS | Encounter Summary ---
Author Organization [facility] Address [address] [place] [address] Care Team Providers Care Seconds Handler Name Role Phone Addie Deleon MD Primary Care Provider [phone] Reason for Visit * Reason Comments Follow-up F/u right knee pain Encounter Details Date Type Department Care Team ([facility] st Contact Info) Description 08/07/2024 8:30 AM EST Office Visit Orthopedics - [address] [phone] Adam Henson PA [address] [place] [address] Primary osteoarthritis of right knee (Primary Dx) Social History Tobacco Use Types Packs/Day Years [...] Sign Reading Time Taken Comments Blood Pressure - - Pulse - - Temperature - - Respiratory Rate - - Oxygen Saturation - - Inhaled Oxygen Concentration - - Weight 49.4 kg (109 lb) 08/07/2024 8:28 AM EST Height 149.9 cm (4' 11.02 ) 08/07/2024 8:[address] Body Mass Index 22 08/07/2024 8:28 AM EST documented in this encounter Plan of Treatment Upcoming Encounters Date Type Department Care Team (Late st Contact Info) Description 09/10/2024 9:15 AM EST Ancillary Procedure [facility] - [address] [place] [address] 09/23/2024 4:00 PM EST Office Visit Orthopedics - [address] [phone] Adam Henson PA [address] [place] [address] 11/09/2024 8:30 AM EDT Office Visit Adult Medicine [place] - [address] [phone] Addie Deleon MD [address] [place] [address] 12/02/2024 4:00 PM EDT Appointment Radiology Department - [address] [phone] documented as of this encounter Visit Diagnoses Diagnosis Primary osteoarthritis of right knee- Primary documented in this encounter Care Teams Seconds Handler Relationship Specialty Start Date End Date Addie Deleon MD [address] [place] [address] PCP - General Internal Medicine 04/22/15 documented as of this encounter
== END 2024-09-03 11:49 | disposition home or self-care (01) ==
PROVIDERS: PCP Internal Medicine; Visit Provider Physician Assistant Surgical
DX: I83.11 Varicose veins of right lower extremity with inflammation (principal)
CPT/HCPCS: 99214

== ENCOUNTER → 2024-09-03 11:26 | Outpatient (BNVA) | payer MEDICARE, SELFPAY | PROVIDERS: PCP Internal Medicine; Visit Provider Physician Assistant Surgical | DX: I83.11 Varicose veins of right lower extremity with inflammation (principal) | CPT/HCPCS: 99212 ==